=== PATIENT | female | born 1985 | race Caucasian/White ===

== ENCOUNTER 2016-12-14 11:37 | Emergency (ER) | payer OTHER ==
[~2016-12-14] VITALS: Ht 172.7 cm; Wt 83.5 kg
[~2016-12-14 11:37] MED LIST: BACTDS PO; CEPH-443 PO; NAPR-688 PO
[2016-12-14 11:40] VITALS: Ht 172.7 cm; Wt 83.5 kg
[2016-12-14 12:15] LABS: URINE BLOOD (Dip) POC 1+ (NEGATIVE)
[2016-12-14] MEDS ORDERED: PHEN-537 PO (12:36)
[2016-12-14] MEDS ORDERED: NITR-58 PO (12:36)
--- NOTE | 2016-12-20 08:32 | ERD ---
ER Documentation Chief Complaint Date/Time DATE: 12/20/16 TIME: 08:27 Chief Complaint dysuria, frequency and foul odor x1week HPI Old female patient with no significant past medical history presents the ED complaining of dysuria and frequency that started 1 week ago. Patient also reports that she feels like her urine smells. Reports that she is not sexually active. States that her menses was sometime 1 week ago. Denies any fever, chills, flank pain, abdominal pain, nausea, vomiting, diarrhea, constipation. ROS All systems reviewed and are negative except as per history of present illness. Medications Home Meds Active Scripts Phenazopyridine Hcl* (Pyridium*) 100 Mg Tab, 100 MG PO TID Y for URINARY PAIN, # 8 TAB Prov:JANIS HOSKINS PA-C 12/14/16 Nitrofurantoin Monohyd Macrocr* (Macrobid*) 100 Mg Capsr, 100 MG PO BID for 7 Days, CAP Prov:JANIS HOSKINS PA-C 12/14/16 Naproxen* (Naproxen*) 500 Mg Tablet, 500 MG PO BID Y for PAIN, #16 TAB Prov:MOISES FERREIRA DO 01/20/16 Cephalexin* (Keflex*) 500 Mg Capsule, 500 MG PO QID for 10 Days, CAP Prov:MOISES FERREIRA DO 01/20/16 Sulfamethoxazole-Trimethoprim* (Bactrim* DS) 800-160 Mg Tab, 1 TAB PO BID for 10 Days, TAB Prov:MOISES FERREIRA DO 01/20/16 PMhx/Soc Hx Alcohol Use: Yes Hx Substance Use: Yes (METH) Hx Tobacco Use: Yes Smoking Status: Former smoker Physical Exam Vitals Temperature 98.7 Pulse 109 Respirations 20 SBP 145 DBP 77 O2 Sat 97 Physical Exam Const: [id number], well-nourished. In no acute distress. Head: Atraumatic, normocephalic Eyes: Normal Conjunctiva without injection ENT: Normal external ear, nose and mouth. Neck: Full range of motion. No meningismus. Resp: Clear to auscultation bilaterally. No wheezing, rhonchi, rales, or crackles. No accessory muscle use. No retractions. Cardio: Regular rate and rhythm, no murmurs Skin: No petechiae or rashes Back: No midline tenderness. No CVA tenderness. Ext: No cyanosis, or edema. Cap refill less than 2 seconds. Distal pulses intact bilaterally. Neur: Awake and alert. Normal gait and coordination. Muscle strength 5/5. Sensation intact bilaterally. Psych: Normal Mood and Affect Results 24 hrs Laboratory Tests Test 12/14/16 12:20 Bedside Urine pH (LAB) 5.5 Bedside Urine Protein (LAB) 1+ Bedside Urine Glucose (UA) Negative Bedside Urine Ketones (LAB) Negative Bedside Urine Blood 1+ Bedside Urine Nitrite (LAB) Negative Bedside Urine Leukocyte Esterase (L 1+ Procedures/MDM This is a 31-year-old female patient with no significant past medical history presents to the ED complaining of dysuria, frequency, smelly urine that started about 1 week ago. Patient is afebrile and nontoxic-appearing. Patient has normal vital signs. A urine dip was ordered to further evaluate patient. Urine dip showed 1+ leukocyte esterase, 1+ hematuria. Patient likely has a urinary tract infection. Patient is appropriate for outpatient management. There is low suspicion for pyelonephritis, nephrolithiasis, septic renal stone. Negative urine . Low suspicion for gastritis, GERD, peptic ulcer disease, cholecystitis, choledocholithiasis, cholangitis, pancreatitis, appendicitis, bowel obstruction, ileus, volvulus, hepatitis, perforated viscus, diverticulitis, abdominal hernia, acute abdomen, mesenteric ischemia or other emergent conditions. Discharge medications: Pyridium, Macrobid Follow up with primary care physician in 1-2 days for referral to events traffic controller. Instructed patient to return to the ED sooner for any worsening symptoms. Patient's questions were answered. Patient understood and agreed with discharge plan. Patient discharged stable. Departure Diagnosis: Primary Impression: Dysuria Condition: Stable Patient Instructions: Dysuria, Urinary Tract Infections in Women Referrals: COMMUNITY CLINICS YOU HAVE RECEIVED A MEDICAL SCREENING EXAM AND THE RESULTS INDICATE THAT YOU DO NOT HAVE A CONDITION THAT REQUIRES URGENT TREATMENT IN THE EMERGENCY DEPARTMENT. FURTHER EVALUATION AND TREATMENT OF YOUR CONDITION CAN WAIT UNTIL YOU ARE SEEN IN YOUR DOCTORS OFFICE WITHIN THE NEXT 1-2 DAYS. IT IS YOUR RESPONSIBILITY TO MAKE AN APPOINTMENT FOR FOLOW-UP CARE. IF YOU HAVE A PRIMARY DOCTOR --you should call your primary doctor and schedule an appointment IF YOU DO NOT HAVE A PRIMARY DOCTOR YOU CAN CALL OUR PHYSICIAN REFERRAL HOTLINE AT IF YOU CAN NOT AFFORD TO SEE A PHYSICIAN YOU CAN CHOSE FROM THE FOLLOWING [facility], [facility] [address] [facility] [address] [facility] [phone] [facility] [address] [facility] [phone] [facility]. [facility] [address] [facility]. [facility] YOU HAVE RECEIVED A MEDICAL SCREENING EXAM AND THE RESULTS INDICATE THAT YOU DO NOT HAVE A CONDITION THAT REQUIRES URGENT TREATMENT IN THE EMERGENCY DEPARTMENT. FURTHER EVALUATION AND TREATMENT OF YOUR CONDITION CAN WAIT UNTIL YOU ARE SEEN IN YOUR DOCTORS OFFICE WITHIN THE NEXT 1-2 DAYS. IT IS YOUR RESPONSIBILITY TO MAKE AN APPOINTMENT FOR FOLOW-UP CARE. IF YOU HAVE A PRIMARY DOCTOR --you should call your primary doctor and schedule and appointment IF YOU DO NOT HAVE A PRIMARY DOCTOR YOU CAN CALL OUR PHYSICIAN REFERRAL HOTLINE AT . IF YOU CAN NOT AFFORD TO SEE A PHYSICIAN YOU CAN CHOSE FROM THE FOLLOWING REPLACED BY [facility] INSTITUTIONS: [facility] [address] [place] [address] [facility] [address] [place] [address] [facility] [address] [place] [address] [employer] [address] [facility] [address] [place] [phone] OFFICE FAX [facility] [place] [address] [place] [address] [address] [place] [address] [place], [place] [id number] [place] [address] [facility], [address], [facility] [address] [address] [address] [place] [address] [facility] [place] [address] [place], [place] [id number] [facility] [id number] - DAVID KURTZ [address] [facility]. [address], [facility] [id number] PAULINO, MAURA [address] [facility] [address], [facility] [address] [facility] [facility] [address] [place] [address] [facility] Hours: 8:00 am - 5:00 pm Additional Instructions: Call your primary care doctor for an appointment during the next 2-3 days.See the doctor sooner or return here if your condition worsens before your appointment time. JANIS HOSKINS PA-C Dec 20, 2016 08:31
== END 2016-12-14 12:48 | disposition home or self-care (01) ==
LOC: FTE 11:37
DX: R30.0 Dysuria (principal); Z87.891 Personal history of nicotine dependence
CPT/HCPCS: 81003; 99283

== ENCOUNTER 2017-05-28 14:09 | Emergency (ER) | END 2017-05-28 19:10 | disposition home or self-care (01) ==

== ENCOUNTER 2017-12-12 15:58 | Emergency (ER) | END 2017-12-12 17:39 | disposition home or self-care (01) ==